=== PATIENT | male | born 1955 | race Caucasian/White ===

== ENCOUNTER 2017-04-16 22:02 | Emergency (ER) | payer BC ==
[2017-04-16] MEDS ORDERED: Ketorolac INJ* 60 MG/2 ML VIAL IM ONE (23:38)
[2017-04-16] MEDS ORDERED: Methocarbamol TAB* 500 MG PO ONE (23:39)
--- NOTE | 2017-04-16 23:41 | ED ---
Back Pain - HPI Summary HPI Summary: 61M presents with back pain for 6 months. has been taking hydrocodone occasionally without relief. says is done with medication but has been taking alleve. narcotics make nauseous. has not had imaging in a while. no new injury. no fever. no loss of bowel or bladder or saddle anaesthesia. pain is down right leg with numbness and tingling occasionally. when walks does favor right leg as has deformity of left from injury years ago. - History of Current Complaint Chief Complaint: EDBackInjuryPain Stated Complaint: BACK PAIN Time Seen by Provider: 04/16/17 23:07 Pain Intensity: 9 - Allergies/Home Medications Allergies/Adverse Reactions: Allergies Allergy/AdvReac Type Severity Reaction Status Date / Time No Known Allergies Allergy Verified 04/16/17 22:11 PMH/Surg Hx/FS Hx/Imm Hx Endocrine/Hematology History: Denies: Hx Diabetes Cardiovascular History: Reports: Hx Hypercholesterolemia, Hx Hypertension Denies: Hx Congestive Heart Failure, Hx Pacemaker/ICD Respiratory History: Reports: Hx Sleep Apnea GI History: Reports: Other GI Disorders - pt states he has had rectal bleeding in past History: Denies: Hx Dialysis, Hx Renal Disease Musculoskeletal History: Reports: Other Musculoskeletal History - severe soft tissue injury left leg and residual pain Sensory History: Denies: Hx Hearing Aid Psychiatric History: Reports: Other Psychiatric Issues/Disorders - heavy alcohol use Denies: Hx Panic Disorder - Surgical History Surgery Procedure, Year, and Place: left leg severe soft tissue injury and skin graft repairs 2004. 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 Infectious Disease History: No Infectious Disease History: Denies: Traveled Outside the [place] in Last 30 Days - Family History Known Family History: Positive: Hypertension - Social History Alcohol Use: Daily Alcohol Amount: 6-8 beers/day Substance Use Type: Reports: Prescribed Smoking Status (MU): Former Smoker Have You Smoked in the Last Year: No Review of Systems Negative: Fever Negative: Chest Pain Negative: Shortness Of Breath Positive: Myalgia - back pain All Other Systems Reviewed And Are Negative: Yes Physical Exam Triage Information Reviewed: Yes Vital Signs On Initial Exam: Initial Vitals Temp Pulse Resp BP Pulse Ox 97.5 F 97 16 148/69 92 04/16/17 22:04 04/16/17 22:04 04/16/17 22:04 04/16/17 22:04 04/16/17 22:04 Vital Signs Reviewed: Yes Appearance: Positive: Pain Distress Skin: Positive: Warm, Dry Head/Face: Positive: Normal Head/Face Inspection Eyes: Positive: Normal, Conjunctiva Clear Respiratory/Lung Sounds: Positive: Clear to Auscultation, Breath Sounds Present Cardiovascular: Positive: Normal, RRR Musculoskeletal: Positive: Strength/ROM Intact - back with pain, Other - good pulses, tenderness right side of back, pos SLR right Neurological: Positive: Reflexes Intact - patella, achilles Diagnostics - Vital Signs Vital Signs Temp Pulse Resp BP Pulse Ox 04/16/17 22:04 97.5 F 97 16 148/69 92 - Laboratory Lab Statement: Any lab studies that have been ordered have been reviewed, and results considered in the medical decision making process. Back Pain Course/Dx - Course Course Of Treatment: 61M presents with back pain for 6 months. has been taking hydrocodone occasionally without relief. says is done with medication but has been taking alleve. narcotics make nauseous. has not had imaging in a while. no new injury. no fever. no loss of bowel or bladder or saddle anaesthesia. pain is down right leg with numbness and tingling occasionally. when walks does favor right leg as has deformity of left from injury years ago. on exam has tenderness across right side of back. discussed pain options and decided to try robaxin and lidocaine patches. will give referral to neurosurgery. patient understands and agrees with plan. - Diagnoses Differential Diagnosis/HQI/PQRI: Positive: Herniated Disc, Strain, Sprain Provider Diagnoses: Back pain Discharge - Discharge Plan Condition: Good Disposition: HOME Prescriptions: Lidocaine PATCH 5%* [Lidoderm 5% Patch*] 1 patch TRANSDERM DAILY #7 patch Methocarbamol [Robaxin-750 MG TAB] 750 mg PO TID #21 tab Patient Education Materials: Back Pain (ED) Referrals: Jeremias Hancock MD [Medical Doctor] - Krystal Buck NP [Primary Care Provider] - Additional Instructions: Take muscle relaxers three times Apply lidocaine patches to area for up to 12 hours in one 24 hour period Use ibuprofen or Tylenol for pain every 6 hours ice/heat area, move as much as possible Follow up with primary within 5 days Follow up with neuro surgery Return to ED if develop any new or worsening symptoms
[2017-04-17] MEDS ORDERED: Lidocaine PATCH 5%* 1 PATCH ONE (00:21)
[2017-04-17] MEDS ORDERED: Lidocaine PATCH 5%* 1 PATCH TRANSDERM ONE ×2 (00:35→23:45)
[2017-04-17 01:11] VITALS: BP 136/83
[2017-04-17] MEDS ORDERED: Lidocaine Patch REMOVE* 1 NOTE MISC PATCH OFF ONE (12:00)
== END 2017-04-17 01:10 | disposition home or self-care (01) ==
LOC: ED 22:02
DX: M54.9 Dorsalgia, unspecified (principal); Z86.79 Personal history of other diseases of the circulatory system
CPT/HCPCS: 96372; 99282; A9270-GY; J1885

== ENCOUNTER 2017-05-03 05:58 | Observation (INO) | payer BC ==
[~2017-05-03 05:58] MED LIST: Buffered Lidocaine 0.9% SYRIN* 5 ML/SYR SYRINGE INTRADERM ONE
[2017-05-03] MEDS ORDERED: Dexamethasone TAB* 4 MG PO ONE (06:00)
[2017-05-03] MEDS ORDERED: Famotidine IV* 10 MG/ML 2 ML (20 mg) IV ONE (06:00)
[2017-05-03] MEDS ORDERED: Famotidine IV* 10 MG/ML 2 ML (20 mg) ONE (06:07)
[2017-05-03] MEDS ORDERED: ceFAZolin 1 GM ADVAN(*) 1 GM ADDV.VIAL IVPB ONE (06:07)
[2017-05-03] MEDS ORDERED: ceFAZolin 2 GM PREMIX (*) 50 ML IVPB ONE (06:07)
[2017-05-03] MEDS ORDERED: Buffered Lidocaine 0.9% SYRIN* 5 ML/SYR SYRINGE ONE (06:08)
[2017-05-03] MEDS ORDERED: Lidocaine 1% MPF wEPI 200,000* 30 ML SDV ONE (07:01)
[2017-05-03] MEDS ORDERED: Thrombin 5,000 UNITS* 1 APPLIC KIT - topical use - TOPICAL ONE (07:01)
[2017-05-03] MEDS ORDERED: Bacitracin IV* 50,000 UNITS INJ ONE (07:02)
[2017-05-03] MEDS ORDERED: Glycopyrrolate IV* 0.2 MG/ML 1 ML VIAL ONE (07:26)
[2017-05-03] MEDS ORDERED: Propofol* 10 MG/ML 20 ML BTL IV PUSH ONE (07:32)
[2017-05-03] MEDS ORDERED: Lidocaine 2% PF * 5 ML VIAL ONE (07:32)
[2017-05-03] MEDS ORDERED: Midazolam* 1 MG/ML 5 ML VIAL (5 MG) ONE (07:33)
[2017-05-03] MEDS ORDERED: fentaNYL* 50 MCG/ML 2 ML VIAL (100 MCG VIAL) ONE ×3 (07:33→10:35)
[2017-05-03] MEDS ORDERED: Dexamethasone IV* 4 MG/ML 1 ML (4 MG) ONE (07:35)
[2017-05-03] MEDS ORDERED: Lidocaine 1%* 5 ML VIAL ONE (07:45)
[2017-05-03] MEDS ORDERED: Oxymetazoline 0.05% NASAL SPR* 15 ML BTL ONE (07:48)
[2017-05-03] MEDS ORDERED: EPHEDrine (Pressors)* 50 MG/ML VIAL ONE (08:32)
[2017-05-03] MEDS ORDERED: Ondansetron INJ* 2 MG/ML VIAL ONE ×2 (08:44→13:00)
[2017-05-03] MEDS ORDERED: fentaNYL* 50 MCG/ML 2 ML VIAL (100 MCG VIAL) IV PRN (08:56)
[2017-05-03] MEDS ORDERED: HYDROcodone/ACETAMIN 5-325 MG* 1 TAB PO PRN ×2 (08:56→09:39)
[2017-05-03] MEDS ORDERED: PROCHLORPERAZINE INJ 5 MG/ML 2 ML VIAL IV PRN (08:56)
[2017-05-03] MEDS ORDERED: Acetaminophen TAB* 325 MG PO PRN (09:39)
[2017-05-03] MEDS ORDERED: Albuterol 2.5 MG/3 ML NEB.SOL* (0.083%) INH PRN (10:34)
[2017-05-03] MEDS ORDERED: Morphine INJ* 4 MG/ML 1 ML CARPUJECT ONE (10:35)
[2017-05-03] MEDS: Morphine INJ* 2 MG/ML 1 ML CARPUJECT IV PRN ×2 (10:39→10:48)
[2017-05-03] MEDS ORDERED: oxyCODONE/Acetamin 5/325 MG* TAB ONE ×2 (11:04→11:55)
[2017-05-03] MEDS: oxyCODONE/Acetamin 5/325 MG* TAB PO PRN ×2 (11:07→11:56)
--- NOTE | 2017-05-03 11:45 | CONS ---
DATE OF CONSULTATION: 05/03/2017. ATTENDING PHYSICIAN: Dr. Jeremias Hancock. CONSULTING PHYSICIAN: Dr. Selina Rodriguez (dictation provided by Laura Hurt NP) . REASON FOR CONSULTATION: Medical comanagement, patient admitted for a decompressive lumbar laminectomy to L3-4. HISTORY OF PRESENT ILLNESS: Mr. Espino is a 61-year-old male with a past medical history of hypertension, COPD, peripheral vascular disease and sleep apnea who presented to the hospital today for an elective decompressive lumbar laminectomy to L3-[address] Hancock. Please see the dictated history and physical from Dr. Hancock for complete details. In brief, the patient had ongoing pain in his back radiating into his right buttock and opted for surgical intervention today. The patient was seen preoperatively by his primary care provider, KRISHNA Zaragoza as well as Dr. Baker from Cardiology. At the time of his visit to Dr. Baker's office, he was complaining of some shortness of breath and therefore a transthoracic echocardiogram was obtained which showed an intact ejection fraction, some impaired diastolic dysfunction and no significant valvular disorders. The patient was deemed medically appropriate to proceed with therapy. Mr. Espino was examined immediately postoperatively in the PACU and he is unable to provide detailed information further than that noted here. PAST MEDICAL HISTORY: 1. Obstructive sleep apnea. 2. COPD. 3. Hypertension. 4. Arthritis. 5. Obesity. MEDICATIONS: 1. Hydrocodone/acetaminophen one tab p.o. q.6 hours prn Lidocaine patch 5 percent as needed. 2. Tizanidine 4 mg prn. 3. Cholecalciferol 1000 units p.o. daily. 4. Citalopram 20 mg p.o. q.a.m. 5. Lisinopril/Hydrochlorothiazide one tab p.o. q.a.m. 6. Albuterol prn. 7. Vitamin D 1000 units daily. ALLERGIES: AUGMENTIN. FAMILY HISTORY: Unobtainable. SOCIAL HISTORY: The patient is . There is no report of current smoking. He quit after 26 years at age 42. He drinks beer regularly, about two to three beers a night and up to 12 on a weekend. No reported drug use. His will be the healthcare proxy. REVIEW OF SYSTEMS: Unobtainable as the patient is drowsy after surgery. PHYSICAL EXAM: General: Mr. Espino is lying in the bed. He is in no acute distress. He does open his eyes to voice and responds appropriately though quickly falls back asleep. Vital Signs: Temperature 97.2, pulse rate 83, respiratory rate 18, O2 saturation 92 percent on 6 liters nasal cannula in the PACU in the immediate postoperative period, blood pressure 133/85. Heart: S1, S1. No murmur, rub, or gallop and regular. Lungs: Clear to auscultation bilaterally with no accessory muscle use, in good aeration. Abdomen: Soft, nontender. Bowel sounds positive times four. Extremities: No cyanosis. Positive 1+ edema. Skin: Intact. DIAGNOSTIC STUDIES/LAB DATA: On 04/28/2017: WBC 11, hemoglobin 14.1, hematocrit 42, platelet count 313; sodium 136, potassium 4.5, chloride 100, serum bicarbonate 29, BUN 23, creatinine 1.10, glucose 108. ASSESSMENT: Mr. Espino is a 61-year-old male with a past medical history of morbid obesity, COPD, obstructive sleep apnea and hypertension, as well as significant alcohol use who presents to the hospital today with plan for a lumbar laminectomy to L3-4. RECOMMENDATIONS: My recommendations are as follows: 1. Lumbar laminectomy: Management per Neurosurgery. 2. Hypertension: Continue Lisinopril/Hydrochlorothiazide as long as the patient 's blood pressure is greater than 110; those parameters have been ordered. 3. Obstructive sleep apnea: Patient confirms use of CPAP which he did bring with him to use during this hospitalization. 4. COPD: The patient will continue on Albuterol as needed and he will be encouraged to use his incentive spirometer. 5. His code status is full code. 6. DVT prophylaxis per neurosurgery. Approximately 60 minutes were spent in the consultation of this patient, more than half that time was spent with the patient at the bedside reviewing the medical record, performing the physical examination and reviewing my plan of care. LAURA HURT NP [id number]/[facility] #: [id number] ILIANA
--- NOTE | 2017-05-03 12:15 | RAD ---
HISTORY: Decompressive laminectomy COMPARISONS: September 16, 2016, MRI dated October 18, 2016 VIEWS: 1 , portable intraoperative view of the lumbar spine performed for localization during spinal surgery at 8:37 AM FINDINGS: A single portable intraoperative view of the spine demonstrates a metallic probe opposite of L3-L4 counting from L5 as the last lumbar intervertebral body. IMPRESSION: LIMITED PORTABLE VIEW OF THE SPINE FOR LOCALIZATION DURING SPINAL SURGERY
[2017-05-03] MEDS ORDERED: Ondansetron INJ* 2 MG/ML VIAL IV PRN (13:05)
[2017-05-03] MEDS ORDERED: Scopolamine 1.5 mg* PATCH TRANSDERM PRN (17:05)
[2017-05-03] MEDS ORDERED: Scopolamine 1.5 mg* PATCH ONE (17:14)
[2017-05-03] MEDS: Naproxen TAB* 250 MG PO PRN (20:50)
--- NOTE | 2017-05-04 07:30 | PN ---
Progress Note - Progress Note Date of Service: 05/04/17 SOAP: Subjective: []POD # 1 Pre op leg pain better C/O some incisional pain Objective: []Drain output slowing Neuro intact Assessment: []Stable post op Plan: []D/C today D/C Instructions given
[2017-05-04] MEDS: Naproxen TAB* 250 MG PO PRN (08:00)
[2017-05-04] MEDS ORDERED: Citalopram TAB* 20 MG PO SCH (09:00)
[2017-05-04] MEDS ORDERED: Hydrochlorothiazide TAB* 25 MG PO SCH (09:00)
[2017-05-04] MEDS ORDERED: Lisinopril TAB* 10 MG PO SCH (09:00)
[2017-05-04] MEDS ORDERED: Cholecalciferol TAB* 1000 UNITS PO SCH (09:00)
[2017-05-04] MEDS ORDERED: Lisinopril/HCTZ 10/12.5(NF) TAB PO SCH (09:00)
[2017-05-04 09:10] VITALS: BP 137/72
[2017-05-06] MEDS ORDERED: Scopolomine PATCH Remove* 1 NOTE MISC PATCH OFF PRN (17:05)
--- NOTE | 2017-05-09 10:02 | OP ---
DATE OF OPERATION: 05/03/17 - ROOM #348 DATE OF : 55 PRIMARY SURGEON: Jeremias Hancock MD. ANESTHESIOLOGIST: Zoran Chavarria MD ANESTHESIA: General. PRE-OP DIAGNOSIS: Lumbar spinal stenosis at L3-L4. POST-OP DIAGNOSIS: Lumbar spinal stenosis at L3-L4, L4-L5. OPERATIVE PROCEDURE: Decompressive lumbar laminectomy, L3-L4, L4-L5 on the right. DESCRIPTION OF PROCEDURE: After satisfactory general anesthesia was obtained, the patient was placed on the operating table in the prone position with the chest supported on the Sudhakar frame, the back slightly flexed. The lumbar region was then clipped, prepped, and draped in a sterile manner for lumbar laminectomy, and a skin incision outlined from L3 to L5. This incision was infiltrated with 1% Xylocaine with epinephrine, after which it was turned down sharply to the level of the lumbar fascia. The fascia was divided along the spinous processes from L3 to L5, and the paraspinal musculature was stripped away from these posterior elements using the periosteal elevator and monopolar cautery. An intraoperative x-ray was obtained verifying proper interspace localization, after which a decompression was initially carried out at the L3- L4 level by removing the spinous processes of L3 and the superior aspect of spinous process of L4 with a combination of the Leksell rongeur and Vaughn car distributor. A drill was then used to thin out the remainder portion of the base of the spinous process of L3 and inferior aspect of the lamina. A decompression was then carried superiorly utilizing Kerrison rongeurs. This was carried up until the attachment of the ligamentum flavum was taken down. The ligamentum flavum was then removed with a Kerrison as well. The pathology at this level was noted to be a combination of ligamentous thickening and bony hypertrophy. Due to the patient's preoperative complaints of right leg pain, additional exposure was then done at L4-L5 level where imaging studies suggested more of a unilateral stenosis. A partial hemilaminectomy was carried out at the L4-L5 level on the right side in a similar manner. The L5 nerve root was decompressed by removing the hypertrophied ligament as well as some facet hypertrophy. At conclusion of the decompression, hemostasis was obtained with temporary Gelfoam, after which a drain was placed in the epidural space and tunneled out towards the right side. The fascia was then reapproximated with 0 Vicryl sutures. The subcutaneous tissue was closed with 3-0 Vicryl suture and the skin closed with skin clips. The estimated blood loss was 100 cc, and the final sponge, padding, and needle counts were correct. The patient was taken to the recovery room, extubated, and in stable condition. [id number]/[facility] #: [id number] MTDD
== END 2017-05-04 10:40 | disposition home or self-care (01) ==
LOC: OR 05:58 → SSU 09:39
PROVIDERS: ADMIT Neurological Surgery; ATTEND Neurological Surgery
DX: M48.062 Spinal stenosis, lumbar region with neurogenic claudication (principal); I45.10 Unspecified right bundle-branch block; J44.9 Chronic obstructive pulmonary disease, unspecified; I51.7 Cardiomegaly; I71.9 Aortic aneurysm of unspecified site, without rupture; I10 Essential (primary) hypertension; E66.01 Morbid (severe) obesity due to excess calories; G47.33 Obstructive sleep apnea (adult) (pediatric); M19.90 Unspecified osteoarthritis, unspecified site; Z79.899 Other long term (current) drug therapy; Z87.891 Personal history of nicotine dependence; F10.10 Alcohol abuse, uncomplicated; R06.02 Shortness of breath
CPT/HCPCS: 72100; 96374; 96375; A9270-GY; G0378; J0690; J1100; J2001; J2250; J2270; J2405; J2704; J3010

== ENCOUNTER → 2018-01-19 10:34 | Day surgery (SDC) | payer OTHER ==
[~2018-01-19 10:34] MED LIST changes: -Buffered Lidocaine 0.9% SYRIN* 5 ML/SYR SYRINGE INTRADERM ONE; +Heparin 2 UNITS/ML IVPREMIX* 2,000 ML IV ONE; +Heparin(*) 1000 UNIT/ML 10 ML VIAL CATH LAB IV ONE; +Iodixanol* (CONTRAST) 320 MG/ML 100 ML SDV ONE; +Iohexol 350 (CONTRAST) 200 ML MDV IV ONE; +Lidocaine 1% INJ* 10 MG/ML 30 ML SDV ONE; +Midazolam* 1 MG/ML 10 ML VIAL (10 MG) ONE; +NS 0.9% 1000 ML* 1,000 ML IV SCH; +VERAPAMIL 2.5 MG/ML 2 ML VIAL ** 5 mg/2 ml ONE; +fentaNYL* 50 MCG/ML 2 ML VIAL (100 MCG VIAL) ONE; +nitroGLYCERIN DRIP* 25,000 MCG/250 ML BTL ONE
[2018-01-19 14:23] VITALS: BP 139/72
--- NOTE | 2018-01-20 00:22 | CATH ---
CC: Dr. Baker; Krystal Buck NP * CATH REPORT: DATE OF PROCEDURE: 01/19/18 - [facility] CATH PRIMARY CARE PHYSICIAN: Krystal Buck NP CORPORATE TRAVEL AGENT: Dr. Baker. PROCEDURES: Right radial artery access, bilateral selective coronary cineangiography, left heart catheterization. HISTORY: A 62-year-old male with strong family history of premature coronary artery disease, atypical chest pain, predictable effort related arm weakness and dyspnea with underlying obstructive sleep apnea, COPD, and morbid obesity. Stress imaging showed no ischemia. He was referred for coronary angiography because of the discrepancy between noninvasive testing and limiting symptoms. PROCEDURE ACCESS: Right radial artery, sheath 6F slender. MEDICATIONS: 1. Subcu lidocaine. 2. IV Versed. 3. IV fentanyl. 4. Heparin 3000 units. 5. Verapamil 3 mg. 6. Nitroglycerin 300 mcg IA. DIAGNOSTIC CATHETERS: 5 FL4, 5 FR4. Left heart pressure was recorded using the 5 FR4. HEMODYNAMICS: The initial BP 142/90, final BP 121/75, LV 102/17-24, no aortic valve gradient on pullback. ANGIOGRAPHY: Left main: The left main is normal in length, large, has no stenosis. LAD: The LAD is large, extends at the apex. It supplies a small first diagonal , larger second diagonal. The LAD just beyond the second diagonal has minimal luminal irregularity, but has no significant stenosis, it extends past the apex. Circumflex: The circumflex is large, dominant, supplies a moderate first marginal, large second marginal, ends with number of small posterolateral branches and a small to moderate PDA. The circumflex has no significant stenosis. RCA: The RCA is nondominant, relatively small, supplies RV branches, has no stenosis. CONCLUSION: 1. No significant obstructive coronary disease. 2. LV gram not done because of reduced creatinine clearance, normal EF by non- invasive testing. 3. Elevated LVDP posthydration and contrast suggestive of diastolic dysfunction. 4. His exertional dyspnea and fatigue may be due to effort-induced hypoxemia. He will be referred to pulmonary. His sleep apnea is not treated. 5. Successful right radial artery access . [id number]/[facility] #: [id number] MTDD
== END | disposition home or self-care (01) ==
LOC: CHICATH 10:34
PROVIDERS: ATTEND Internal Medicine Cardiovascular Disease
DX: R07.89 Other chest pain (principal); R06.00 Dyspnea, unspecified; R53.1 Weakness; G47.33 Obstructive sleep apnea (adult) (pediatric); J44.9 Chronic obstructive pulmonary disease, unspecified; E66.01 Morbid (severe) obesity due to excess calories; R53.83 Other fatigue; I10 Essential (primary) hypertension; R06.02 Shortness of breath; I73.9 Peripheral vascular disease, unspecified; Z87.891 Personal history of nicotine dependence; I49.3 Ventricular premature depolarization; I77.819 Aortic ectasia, unspecified site
CPT/HCPCS: 93458; J1644; J2250; J3010

== ENCOUNTER 2020-11-23 11:15 | Inpatient (IN) ==
[2020-11-23] MEDS ORDERED: NS 0.9% 1000 ml BAG 1,000 ML IV ONE (14:20)
[2020-11-23 15:07] LABS: Hematocrit 39 % (42-52); Hemoglobin 12.8 g/dL (14.0-18.0); Mean Corpuscular HGB Conc 33 g/dL (31-36); Mean Corpuscular Hemoglobin 30 pg (27-31); Mean Corpuscular Volume 91 fL (80-94); Mean Platelet Volume 7.2 fL (7.4-10.4); Platelet Count 326 10^3/uL (150-450); Red Blood Count 4.25 10^6 /uL (4.18-5.48); Red Cell Distribution Width 14 % (10-15); White Blood Count 14.2 10^3/uL (3.5-10.8)
[2020-11-23 15:10] LABS: ABS Eosinophils 0.2 10^3/ul (0-0.6); ABS Lymphocytes 0.8 10^3/ul (1.0-4.8); ABS Monocytes 1.7 10^3/ul (0-0.8); ABS Neutrophils 11.6 10^3/ul (1.5-7.7); Eosinophil % 1.3 %; Lymphocyte % 5.5 %
[2020-11-23 15:22] LABS: EGFR African American 86.7 (>60); EGFR Non-African American 71.7 (>60); Potassium 3.6 mmol/L (3.5-5.0)
[2020-11-23] MEDS ORDERED: Cefepime 1 GM in Dextrose 1 GM/50 ML BAG IV ONE (16:34)
[2020-11-23 16:56] LABS: Erythrocyte Sed Rate 46 mm/Hr (0-19)
[2020-11-23] MEDS ORDERED: Dextrose 50% Syringe 50 ml 25 GM/50 ML SYRINGE IV PUSH PRN (17:29)
[2020-11-23 17:42] LABS: C Reactive Protein 142.3 mg/L (<8.01)
[2020-11-23] MEDS ORDERED: Iodixanol (CONTRAST) 320 MG/ML 100 ML SDV IV ONE (17:49)
[2020-11-23] MEDS ORDERED: Vancomycin 2,000 MG in NS 0.9% 500 ml BAG 500 ML IVPB ONE (19:00)
[2020-11-23] MEDS: Mometasone/Formoter 200/5 MDI INH SCH (19:30)
[2020-11-23] MEDS: HYDROcodone/ACETAMIN 5/325 mg TAB PO PRN (19:56)
[2020-11-23] MEDS: NS 0.9% 1000 ml BAG 1,000 ML IV SCH (19:57)
[2020-11-23] MEDS ORDERED: Vancomycin per Pharmacy 1 EA NOTE FOLLOW UP PRN (20:15)
[2020-11-23] MEDS: Enoxaparin 40 MG/0.4 ML SYR SUBCUT SCH (21:35)
[2020-11-24] MEDS: Cefepime 2 GM in Dextrose 2 GM/50 ML BAG IV SCH ×2 (04:38→17:14)
[2020-11-24 05:38] LABS: ABS Eosinophils 0.3 10^3/ul (0-0.6); ABS Lymphocytes 0.8 10^3/ul (1.0-4.8); ABS Monocytes 1.2 10^3/ul (0-0.8); ABS Neutrophils 9.5 10^3/ul (1.5-7.7); Eosinophil % 2.8 %; Hematocrit 36 % (42-52); Lymphocyte % 6.3 %; Mean Corpuscular HGB Conc 34 g/dL (31-36); Mean Corpuscular Hemoglobin 31 pg (27-31); Mean Corpuscular Volume 90 fL (80-94); Mean Platelet Volume 7.4 fL (7.4-10.4); Nucleated Red Blood Cells % 0.1; Platelet Count 287 10^3/uL (150-450); Red Blood Count 3.94 10^6 /uL (4.18-5.48); Red Cell Distribution Width 14 % (10-15); White Blood Count 11.9 10^3/uL (3.5-10.8)
[2020-11-24 05:58] LABS: Calcium 8.7 mg/dL (8.6-10.3); EGFR African American 98.7 (>60); EGFR Non-African American 81.5 (>60); Potassium 3.8 mmol/L (3.5-5.0)
[2020-11-24] MEDS: Vancomycin 1,250 MG in NS 0.9% 250 ml 250 ML IVPB SCH ×2 (07:34→19:42)
[2020-11-24] MEDS: Mometasone/Formoter 200/5 MDI INH SCH ×2 (08:00→19:09)
[2020-11-24] MEDS: NS 0.9% 1000 ml BAG 1,000 ML IV SCH (10:09)
[2020-11-24] MEDS: HYDROcodone/ACETAMIN 5/325 mg TAB PO PRN ×2 (10:17→19:43)
[2020-11-24] MEDS: Enoxaparin 40 MG/0.4 ML SYR SUBCUT SCH (21:30)
[2020-11-25] MEDS: Cefepime 2 GM in Dextrose 2 GM/50 ML BAG IV SCH ×2 (04:50→17:49)
[2020-11-25 06:40] LABS: ABS Basophils 0.1 10^3/ul (0-0.2); ABS Eosinophils 0.4 10^3/ul (0-0.6); ABS Lymphocytes 0.7 10^3/ul (1.0-4.8); ABS Monocytes 1.1 10^3/ul (0-0.8); ABS Neutrophils 7.2 10^3/ul (1.5-7.7); Eosinophil % 4.7 %; Hematocrit 34 % (42-52); Hemoglobin 11.5 g/dL (14.0-18.0); Lymphocyte % 7.3 %; Mean Corpuscular HGB Conc 34 g/dL (31-36); Mean Corpuscular Hemoglobin 31 pg (27-31); Mean Corpuscular Volume 91 fL (80-94); Mean Platelet Volume 7.3 fL (7.4-10.4); Nucleated Red Blood Cells % 0.1; Platelet Count 312 10^3/uL (150-450); Red Blood Count 3.72 10^6 /uL (4.18-5.48); Red Cell Distribution Width 14 % (10-15); White Blood Count 9.5 10^3/uL (3.5-10.8)
[2020-11-25] MEDS ORDERED: Vancomycin Trough Check NOTE FOLLOW UP ONE (07:30)
[2020-11-25] MEDS: Mometasone/Formoter 200/5 MDI INH SCH ×2 (08:28→19:14)
[2020-11-25] MEDS: Enoxaparin 40 MG/0.4 ML SYR SUBCUT SCH (21:08)
[2020-11-25] MEDS: HYDROcodone/ACETAMIN 5/325 mg TAB PO PRN (23:47)
[2020-11-26] MEDS: Cefepime 2 GM in Dextrose 2 GM/50 ML BAG IV SCH (04:58)
[2020-11-26 06:20] LABS: ABS Basophils 0.1 10^3/ul (0-0.2); ABS Eosinophils 0.5 10^3/ul (0-0.6); ABS Neutrophils 6.6 10^3/ul (1.5-7.7); Eosinophil % 5.7 %; Hematocrit 38 % (42-52); Hemoglobin 12.6 g/dL (14.0-18.0); Lymphocyte % 10.8 %; Mean Corpuscular HGB Conc 34 g/dL (31-36); Mean Corpuscular Hemoglobin 31 pg (27-31); Mean Corpuscular Volume 91 fL (80-94); Mean Platelet Volume 6.9 fL (7.4-10.4); Nucleated Red Blood Cells % 0.1; Platelet Count 338 10^3/uL (150-450); Red Blood Count 4.12 10^6 /uL (4.18-5.48); Red Cell Distribution Width 14 % (10-15); White Blood Count 9.2 10^3/uL (3.5-10.8)
[2020-11-26 06:42] LABS: EGFR African American 101.2 (>60); EGFR Non-African American 83.6 (>60); Potassium 4.1 mmol/L (3.5-5.0)
[2020-11-26] MEDS: Mometasone/Formoter 200/5 MDI INH SCH (07:36)
[2020-11-26 13:57] VITALS: BP 136/87
== END 2020-11-26 16:00 | disposition home or self-care (01) | DRG 638 ==
LOC: ED 11:15 → MED 17:19
PROVIDERS: ADMIT Hospitalist; ATTEND Internal Medicine